=== PATIENT | male | born 1975 | race African-American/Black ===

== ENCOUNTER 2024-07-21 05:41 | Emergency (ER) | payer MEDICAID ==
[~2024-07-21] VITALS: Ht 198.1 cm; Wt 120.0 kg
[2024-07-21 05:48] VITALS: TEMP 98
[2024-07-21] MEDS: LORazepam 1 MG tablet PO ONE (06:27)
[2024-07-21 07:07] LABS: BASOPHILS % (AUTO) 0.3 % (0-1); EOSINOPHILS # (AUTO) 0.1 X10'3 (0-0.9); EOSINOPHILS % (AUTO) 1.5 % (0-6); HEMATOCRIT 43.9 % (42.0-52.0); HEMOGLOBIN 14.6 g/dl (14.0-17.9); LYMPHOCYTES # (AUTO) 1.7 X10'3 (1.1-4.8); LYMPHOCYTES % (AUTO) 24.8 % (21-51); MEAN CORPUSCULAR HGB CONC 33.2 g/dL (33.0-36.5); MEAN CORPUSCULAR VOLUME 87.3 FL (78-98); MEAN PLATELET VOLUME 6.9 FL (7.4-10.4); MONOCYTES # (AUTO) 0.7 X10'3 (0-0.9); MONOCYTES % (AUTO) 10.3 % (2-12); NEUTROPHILS # (AUTO) 4.2 X10'3 (1.8-7.7); NEUTROPHILS % (AUTO) 63.1 % (42-75); PLATELET COUNT 227 X10'3 (140-440); RED BLOOD COUNT 5.03 X10'6 (4.70-6.10); RED CELL DISTRIBUTION WIDTH 14.3 % (11.5-14.5); WHITE BLOOD COUNT 6.7 X10'3 (4.5-11.0)
[2024-07-21 07:09] LABS: ANION GAP 9 (8-16); BLOOD UREA NITROGEN 11 MG/DL (7-18); BUN/CREATININE RATIO 9.2 (10.0-20.0); CHLORIDE 98 MMOL/L (99-107); GLUCOSE 131 MG/DL (70-104); POTASSIUM 3.7 MMOL/L (3.5-5.1); SODIUM 136 MMOL/L (135-145); TOTAL CARBON DIOXIDE 29.3 MMOL/L (24-32)
[2024-07-21 07:10] LABS: ALANINE AMINOTRANSFERASE 22 U/L (12-78); ALBUMIN 3.7 G/DL (3.4-5.0); ALBUMIN/GLOBULIN RATIO 0.9 (1.1-1.5); ALKALINE PHOSPHATASE 126 IU/L (46-116); ASPARTATE AMINO TRANSFERASE 21 U/L (10-37); BILIRUBIN,TOTAL 0.5 MG/DL (0.1-1.0); ETHANOL < 10 MG/DL (<10); TOTAL PROTEIN 7.9 G/DL (6.4-8.2); eCRCL 96 ML/MIN; eGFR 64 ML/MIN
[2024-07-21 11:32] LABS: BILIRUBIN,URINE NEGATIVE (Neg); CLARITY,URINE CLEAR (Clear); COLOR,URINE YELLOW (Yellow); GLUCOSE, URINE NEGATIVE (Neg); KETONES,URINE NEGATIVE (Neg); LEUKOCYTE ESTERASE ,URINE NEGATIVE (Neg); NITRITES, URINE NEGATIVE (Neg); OCCULT BLOOD,URINE MODERATE (Neg); PROTEIN,URINE NEGATIVE (Neg); UROBILINOGEN,URINE 0.2 E.U/dL (0.2-1.0)
[2024-07-21 11:39] LABS: URINE AMPHETAMINE SCREEN NEGATIVE (Neg); URINE BARBITUATE SCREEN NEGATIVE (Neg); URINE BENZODIAZEPINES SCREEN NEGATIVE (Neg); URINE CANNABINOID SCREEN POSITIVE (Neg); URINE COCAINE SCREEN POSITIVE (Neg); URINE METHADONE SCREEN NEGATIVE (Neg); URINE OPIATE SCREEN NEGATIVE (Neg); URINE PHENCYCLIDINE SCREEN NEGATIVE (Neg)
[2024-07-21 11:41] LABS: UA COLLECTION TYPE CLN CATCH MIDSTREAM
[2024-07-21 11:43] LABS: BACTERIA,URINE NONE SEEN /HPF (Neg); MUCUS STRANDS NONE SEEN /LPF (Neg); RBC,URINE 20-50 /HPF (0-2); SQUAMOUS EPITHELIAL CELL,UR FEW /LPF (FEW); WBC,URINE 0-4 /HPF (0-4)
[2024-07-21 11:44] LABS: TRANSITIONAL EPI CELLS,URINE FEW /HPF
[2024-07-21 16:55] VITALS: BP 172/98; PULSE 89; RESP 18; O2SAT 100
== END 2024-07-21 16:57 | disposition home or self-care (01) ==
LOC: ER 05:42
DX: F23 Brief psychotic disorder (principal)
CPT/HCPCS: 36415; 80053; 80305; 80320; 81001; 85025; 99284

== ENCOUNTER 2024-07-24 13:37 | Emergency (ER) | payer MEDICAID ==
[~2024-07-24] VITALS: Ht 193 cm; Wt 119.6 kg
[2024-07-24 14:00] VITALS: BP 172/91; PULSE 106; RESP 18; TEMP 97.6; O2SAT 99
--- NOTE | 2024-07-24 14:01 | Physician Documentation ---
History of Present Illness ~ Stated Complaint: SEE CHIEF COMPLAINT Time Seen by MD: 14:11 HPI This 49-year-old male patient returns to the ED with recurrent psychotic de lusional thoughts indicating that he has some sort of mucus balls in his nasal cavity. He was recently evaluated for this and the only significant finding was that he tested positive for cocaine. Patient was ultimately discharged with a safety plan. Patient currently is denying any SI or HI plan Medication Reconciliation Allergies: Coded Allergies: No Known Allergies (Unverified , 07/21/24) Review of Systems All Other Systems at this time: Reviewed and Negative ROS As stated above in the HPI, otherwise all systems are reviewed and negative. Physical Exam Physical Exam General: Alert, no apparent distress. HEENT: PERRL, EOMI, no injection, moist mucous membranes. Neurologic: Oriented x4. Psychiatric: Normal mood and affect. Skin: Normal color, warm and dry. No edema, no ecchymosis. Progress Results/Orders Results/Orders Vital Signs 07/24/24 14:00 Temp 97.6 Pulse 106 Resp 18 B/P (MAP) 172/91 Pulse Ox 99 Medical Decision Making Findings There is clearly a psychiatric element to this patient along with evidence of cocaine use. He would look in his nose as he requested I did not see any foreign objects or excessive mucus. Certain he just recently had a large workup for the same symptoms I do not feel the need to pursue this any further. Recommended that he stop using cocaine and follow up in the outpatient setting. Vitals are reassuring his airway is intact and he has talking without any difficulty. Differential Dx:Considerations: Include: Alcohol abuse, Anxiety, Bipolar disorder, Conversion disorder, Depression, Encephaloathy, Homicidal, Panic disorder, Personality disorder, Schizophrenia, Substance abuse, Suicidal, Other Departure Disposition: 01 HOME / SELF CARE / HOMELESS Impression: Primary Impression: Acute psychosis Additional Impression: Cocaine use Discharge Instructions: Cocaine Use Disorder Additional Instructions: Recommend following up in the outpatient setting for further evaluation of your nasal congestion you do not present as having a bacterial infection. also recommend stop using any recreational drugs Referrals: NO PRIMARY CARE PROVIDER (PCP) Signature Scribe Signature: f Attestation: The note accurately reflects work and decisions made by me.Jarrod Long NP 07/24/24 16:27 JARROD DE PAZ NP Jul 24, 2024 14:01
== END 2024-07-24 14:19 | disposition home or self-care (01) ==
LOC: ER 13:38
DX: F23 Brief psychotic disorder (principal); F14.90 Cocaine use, unspecified, uncomplicated
CPT/HCPCS: 99281